=== PATIENT | male | born 1990 | race Caucasian/White ===

== ENCOUNTER 2020-03-15 20:19 | Emergency (ER) | payer BC, OTHER ==
[~2020-03-15] VITALS: Ht 182.9 cm; Wt 81.8 kg
[2020-03-15 20:21] VITALS: BP 121/79
[2020-03-15] MEDS ORDERED: bacitracin 15gm ointment TP ONE ×2 (20:25→20:55)
[2020-03-15] MEDS ORDERED: HYDR-4383 PO (21:02)
[2020-03-15] MEDS ORDERED: CEPH250T PO (21:02)
== END 2020-03-15 21:19 | disposition home or self-care (01) ==
LOC: ER 20:19
DX: S68.012A Complete traumatic metacarpophalangeal amputation of left thumb, initial encounter (principal); M79.645 Pain in left finger(s); Z79.2 Long term (current) use of antibiotics; Z79.899 Other long term (current) drug therapy; X58.XXXA Exposure to other specified factors, initial encounter; Y93.89 Activity, other specified; Y92.89 Other specified places as the place of occurrence of the external cause; Y99.8 Other external cause status; F12.90 Cannabis use, unspecified, uncomplicated
CPT/HCPCS: 29130; 73140; 99283